=== PATIENT | male | born 1935 | race Caucasian/White ===

== ENCOUNTER → 2020-10-10 12:11 | Outpatient (CLI) | payer MEDICARE, OTHER, SELFPAY ==
[2020-10-11 10:53] LABS: Covid-19 Nasal PCR Sendout P&C Negative
== END ==
PROVIDERS: PCP Family Medicine; Visit Provider Family Medicine
DX: Z20.822 Contact with and (suspected) exposure to COVID-19 (principal)
CPT/HCPCS: U0004